=== PATIENT | male | born 1935 | race Caucasian/White ===

== ENCOUNTER 2017-04-13 15:03 | Emergency (ER) | payer MEDICARE, OTHER ==
--- NOTE | 2017-04-13 15:39 | ER Document Report ---
ED Medical Screen (RME) - General Chief Complaint: Blood Pressure Problem Stated Complaint: BLOOD PRESSURE ISSUES Time Seen by Provider: 04/13/17 15:37 Notes: Patient is concerned because his blood pressure is running high. He is on metoprolol and amlodipine for his blood pressure and he also takes 3 prostate medications for enlargement. He describes an episode of chest pains last night that lasted for only 2 or 3 seconds and has not returned. However, later in the night in the [employer], he got very dizzy and was unable to stand or walk because he was so dizzy. Denies any headache, loss of consciousness or any neurologic deficits. PMH: BPH, HTN TRAVEL OUTSIDE OF THE [place] IN LAST 30 DAYS: No - Related Data Allergies/Adverse Reactions: aspirin [Aspirin] Allergy (Unknown, Verified 05/09/10 11:29) lisinopril [Lisinopril] Allergy (Verified 05/07/10 11:56) TIGHTNESS IN THROAT Penicillins Allergy (Verified 05/07/10 11:56) SWELLED UP Past Medical History - Social History Chew tobacco use (# tins/day): No Frequency of alcohol use: None Drug Abuse: None - Past Medical History Cardiac Medical History: Reports: Hx Hypertension Denies: Hx Congestive Heart Failure, Hx Heart Attack, Hx Heart Murmur Pulmonary Medical History: Denies: Hx Asthma Neurological Medical History: Denies: Hx Cerebrovascular Accident, Hx Seizures Renal/ Medical History: Denies: Hx Peritoneal Dialysis GI Medical History: Denies: Hx Hepatitis, Hx Hiatal Hernia, Hx Ulcer Musculoskeltal Medical History: Infectious Medical History: Denies: Hx Hepatitis Past Surgical History: Denies: Hx Open Heart Surgery, Hx Pacemaker Physical Exam - Vital signs Vitals: Temp Pulse BP Pulse Ox 97.6 F 56 L 179/67 H 98 04/13/17 15:08 04/13/17 15:08 04/13/17 15:08 04/13/17 15:08 Course - Vital Signs Vital signs: Temp Pulse Resp BP Pulse Ox 97.6 F 56 L 179/67 H 98 04/13/17 15:08 04/13/17 15:08 04/13/17 15:08 04/13/17 15:08
[2017-04-13 15:57] LABS: ABSOLUTE EOSINOPHILS # (AUTO) 0.3 10^3/uL (0.0-0.6); ABSOLUTE LYMPHOCYTES (AUTO) 1.5 10^3/uL (0.5-4.7); ABSOLUTE MONOCYTES (AUTO) 0.5 10^3/uL (0.1-1.4); ABSOLUTE NEUT (AUTO) 4.4 10^3/uL (1.7-8.2); BASOPHILS % (AUTO) 0.6 % (0-2); EOSINOPHILS % (AUTO) 4.3 % (0-6); HEMATOCRIT 37.7 % (37.9-51.0); HEMOGLOBIN 13.2 g/dL (13.5-17.0); LYMPHOCYTES % (AUTO) 21.8 % (13-45); MEAN CORPUSCULAR VOLUME 89 fl (80-97); MONOCYTES % (AUTO) 7.8 % (3-13); PLATELET COUNT 184 10^3/uL (150-450); RED BLOOD COUNT 4.26 10^6/uL (4.35-5.55); RED CELL DISTRIBUTION WIDTH 12.8 % (11.5-14.0); SEGMENTED NEUTROPHILS % (AUTO) 65.5 % (42-78); TOTAL CELLS COUNTED % (AUTO) 100 %; WHITE BLOOD COUNT 6.7 10^3/uL (4.0-10.5)
[2017-04-13 16:15] LABS: ALANINE AMINOTRANSFERASE 25 U/L (21-72); ALBUMIN 4.4 g/dL (3.5-5.0); ALKALINE PHOSPHATASE 78 U/L (38-126); ANION GAP 12 (5-19); ASPARTATE AMINO TRANSFERASE 20 U/L (17-59); BILIRUBIN,DIRECT 0.4 mg/dL (0.0-0.4); BILIRUBIN,TOTAL 0.5 mg/dL (0.2-1.3); BLOOD UREA NITROGEN 28 mg/dL (7-20); CALCIUM 9.7 mg/dL (8.4-10.2); CARBON DIOXIDE 23 mmol/L (22-30); CHLORIDE 107 mmol/L (98-107); GLUCOSE 111 mg/dL (75-110); SODIUM 141.8 mmol/L (137-145)
--- NOTE | 2017-04-13 16:15 | RADIOLOGY REPORT (SQ) ---
EXAM DESCRIPTION: CT HEAD WITHOUT COMPLETED DATE/TIME: 04/13/2017 4:01 pm REASON FOR STUDY: Dizziness, so bad patient unable to walk COMPARISON: None. TECHNIQUE: Axial images acquired through the brain without intravenous contrast. Images reviewed wi th bone, brain and subdural windows. Images stored on PACS. All CT scanners at this facility use dose modulation, iterative reconstruction, and/or weight based d osing when appropriate to reduce radiation dose to as low as reasonably achievable (ALARA). [facility]: Dose Right [facility]: CareDose [facility]: Dose Right [facility]: Teradose 4D [facility]: Smart [place] RADIATION DOSE: CT Rad equipment meets quality standard of care and radiation dose reduction techniq ues were employed. CTDIvol: 64.6 mGy. DLP: 1163 mGy-cm. mGy. LIMITATIONS: None. FINDINGS: VENTRICLES: Prominent. CEREBRUM: No masses. No hemorrhage. No midline shift. Areas of low density in the white matter mos t likely due to chronic micro-vascular ischemic change. No evidence for acute infarction. CEREBELLUM: No masses. No hemorrhage. No alteration of density. No evidence for acute infarction. EXTRAAXIAL SPACES: Mild age-related involutional change. No fluid collections. No masses. ORBITS AND GLOBE: No intra- or extraconal masses. Normal contour of globe without masses. CALVARIUM: No fracture. PARANASAL SINUSES: No fluid or mucosal thickening. SOFT TISSUES: No mass or hematoma. OTHER: No other significant finding. IMPRESSION: MILD CHRONIC CHANGES OF ATROPHY AND MICROVASCULAR ISCHEMIA. NO ACUTE PROCESS. EVIDENCE OF ACUTE STROKE: NO. TECHNICAL DOCUMENTATION: JOB ID: [id number] Quality ID # [id number]: Final reports with documentation of one or more dose reduction techniques (e.g., Au tomated exposure control, adjustment of the mA and/or kV according to patient size, use of iterative reconstruction technique) 2010 [employer]- All Rights Reserved Reading location - IP/workstation name: [email or web address]
[2017-04-13 16:26] LABS: CREATINE KINASE MB 0.59 ng/mL (<4.55); TROPONIN I < 0.012 ng/mL
--- NOTE | 2017-04-13 16:31 | ER Document Report ---
ED General - General Chief Complaint: Blood Pressure Problem Stated Complaint: BLOOD PRESSURE ISSUES Time Seen by Provider: 04/13/17 15:37 Information source: Patient Notes: 81-year-old male who presents today with a "episode" last evening followed by some high blood pressure. Patient last night had a "2-3 second episode" of some substernal pressure. It resolved without intervention. Patient denies any nausea or vomiting with that episode. He states around an hour later when he was sleeping he felt "lightheaded and dizzy". This lasted around 10 minutes. Patient has had no symptoms whatsoever today. No headache, neck pain , chest pain, palpitations, abdominal pain, nausea, vomiting, or diarrhea. Patient did notice today that his blood pressure was elevated. Patient is followed by local primary care physician here in town. There is been no increase or decrease in his blood pressure medication regimen. He states he has been taking his medications. TRAVEL OUTSIDE OF THE [place] IN LAST 30 DAYS: No - HPI Onset: Yesterday Onset/Duration: Sudden Quality of pain: Achy Severity: Mild Pain Level: Denies Associated symptoms: Other - See above Exacerbated by: Denies Relieved by: Denies Similar symptoms previously: No Recently seen / treated by doctor: No - Related Data Allergies/Adverse Reactions: aspirin [Aspirin] Allergy (Unknown, Verified 05/09/10 11:29) lisinopril [Lisinopril] Allergy (Verified 05/07/10 11:56) TIGHTNESS IN THROAT Penicillins Allergy (Verified 05/07/10 11:56) SWELLED UP Past Medical History - General Information source: Patient - Social History Smoking Status: Never Smoker Cigarette use (# per day): No Chew tobacco use (# tins/day): No Smoking Education Provided: No Frequency of alcohol use: None Drug Abuse: None Family History: Reviewed & Not Pertinent Patient has suicidal ideation: No Patient has homicidal ideation: No - Past Medical History Cardiac Medical History: Reports: Hx Hypertension Denies: Hx Congestive Heart Failure, Hx Heart Attack, Hx Heart Murmur Pulmonary Medical History: Denies: Hx Asthma Neurological Medical History: Denies: Hx Cerebrovascular Accident, Hx Seizures Renal/ Medical History: Denies: Hx Peritoneal Dialysis GI Medical History: Denies: Hx Hepatitis, Hx Hiatal Hernia, Hx Ulcer Musculoskeltal Medical History: Infectious Medical History: Denies: Hx Hepatitis Past Surgical History: Denies: Hx Open Heart Surgery, Hx Pacemaker Review of Systems - Review of Systems Constitutional: denies: Fever EENT: denies: Eye discharge, Nose discharge Cardiovascular: Chest pain, Dizziness. denies: Palpitations, Heart racing, Orthopnea, Dyspnea, Syncope, Lightheaded Respiratory: denies: Short of breath Gastrointestinal: denies: Vomiting Genitourinary: denies: Dysuria Musculoskeletal: denies: Leg swelling Skin: Other - no hives. denies: Rash Neurological/Psychological: Other - no slurred speech -: Yes All other systems reviewed and negative Physical Exam - Vital signs Vitals: Temp Pulse BP Pulse Ox 97.6 F 56 L 179/67 H 98 04/13/17 15:08 04/13/17 15:08 04/13/17 15:08 04/13/17 15:08 Notes: Reviewed vital signs and nursing note as charted by RN. CONSTITUTIONAL: Alert and oriented and responds appropriately to questions. Well -appearing; well-nourished HEAD: Normocephalic; atraumatic EYES: PERRL ENT: Normal nose; no rhinorrhea; moist mucous membranes; pharynx without lesions noted NECK: Supple without meningismus; non-tender; no carotid bruits CARD: Regular rate and rhythm; no murmurs, no clicks, no rubs, no gallops; symmetric distal pulses RESP: Normal chest excursion without splinting or tachypnea; breath sounds clear and equal bilaterally ABD/GI: Normal bowel sounds; non-distended; soft, non-tender BACK: The back appears normal and is non-tender to palpation, there is no CVA tenderness EXT: Normal ROM in all joints; non-tender to palpation; no edema SKIN: Normal color for age and race; warm; dry; no acute lesions noted NEURO: CN 2-12 intact. 5/5 bilateral upper and lower extremity strength with SILT; no cerebellar deficits PSYCH: The patient's mood and manner are appropriate. Grooming and personal hygiene are appropriate. Course - Re-evaluation Re-evalutation: Given the above history and physical examination, we will obtain CT imaging of the head, cardiac panel, EKG, and placed the patient on the monitor. I do believe pulmonary embolism and dissection to be unlikely. Given that the patient's pain last evening only lasted 2-3 seconds, I do not believe a repeat troponin will be necessary to evaluate the heart. EKG shows a heart rate of 55, normal sinus rhythm, left axis deviation, poor R- wave progression, no obvious ST elevation or depression. 04/13/17 16:56 Labs as recorded. Normal troponin. Normal hemoglobin. CT scan of the head is unremarkable. 04/13/17 17:04 Patient's repeat blood pressure was 165/64. Patient still denies any headache, chest pain, weakness or numbness. Patient states that he will be able to call his primary care physician tomorrow morning on Friday to get an appointment. I believe that this is a reasonable option. He would like to go home and I again believe that this is reasonable. Patient will be discharged home with strict return precautions. He promises to return immediately with any new or repeat symptoms. - Vital Signs Vital signs: Temp Pulse Resp BP Pulse Ox 97.6 F 56 L 15 181/55 H 96 04/13/17 15:08 04/13/17 15:08 04/13/17 16:31 04/13/17 16:31 04/13/17 16:31 - Laboratory Result Diagrams: 04/13/17 15:50 04/13/17 15:50 Laboratory results interpreted by me: 04/13/17 04/13/17 15:50 15:50 RBC 4.26 L Hgb 13.2 L Hct 37.7 L BUN 28 H Est GFR (Non-Af Amer) 58 L Glucose 111 H Discharge - Discharge Clinical Impression: Elevated blood pressure reading, Atypical chest pain Condition: Good Disposition: HOME, SELF-CARE Additional Instructions: Come back immediately with any repeat symptoms, any new symptoms, nausea, vomiting, fevers, headache, or any other acute problems. Please take your medications as prescribed. Please make sure that she follow-up tomorrow morning with Dr. Briceno as we have discussed. Referrals: IVONE AGUILAR MD [Primary Care Provider] - Follow up as needed
[2017-04-13 16:44] LABS: APPEARANCE,URINE CLEAR; BILIRUBIN,URINE NEGATIVE (NEGATIVE); COLOR,URINE STRAW; GLUCOSE, URINE NEGATIVE (NEGATIVE); KETONES,URINE NEGATIVE (NEGATIVE); LEUKOCYTE ESTERASE,URINE NEGATIVE (NEGATIVE); NITRITE,URINE NEGATIVE (NEGATIVE); PROTEIN,URINE NEGATIVE (NEGATIVE); URINE SPECIFIC GRAVITY 1.004; UROBILINOGEN,URINE NEGATIVE mg/dL (<2.0)
[2017-04-13 17:20] VITALS: BP 177/57
--- NOTE | 2017-04-13 20:19 | EKG REPORT ---
SEVERITY:- ABNORMAL ECG - SINUS RHYTHM FIRST DEGREE AV BLOCK LEFT ANTERIOR FASCICULAR BLOCK BORDERLINE R WAVE PROGRESSION, ANTERIOR LEADS : Confirmed by: Claude Gaxiola MD 13-Apr-2017 20:18:42
== END 2017-04-13 17:35 | disposition home or self-care (01) ==
LOC: ER 15:03
DX: R03.0 Elevated blood-pressure reading, without diagnosis of hypertension (principal); R07.89 Other chest pain; Z88.6 Allergy status to analgesic agent; Z88.0 Allergy status to penicillin; I10 Essential (primary) hypertension
CPT/HCPCS: 36415; 70450; 80053; 81001; 82553; 84484; 85025; 93005; 93010; 99284